=== PATIENT | male | born 1995 | race African-American/Black ===

== ENCOUNTER 2021-02-12 18:37 | Emergency (ER) | payer OTHER, SELFPAY ==
--- NOTE | ~2021-02-12 | XR_ITS ---
EXAMINATION: XR chest 2V DATE: 02/12/2021 19:21 INDICATION: Chronic left-sided chest pain. TECHNIQUE: Frontal and lateral views of the chest were obtained. COMPARISON: None. FINDINGS: The chest demonstrates clear lungs without pneumonia, pleural effusion, or pneumothorax. Th e heart size is normal. IMPRESSION: 1. No acute cardiopulmonary disease. Reviewed, dictated and finalized at location A. PLAY PROGRAMMER
--- NOTE | 2021-02-12 18:40 | ECG_ITS ---
Measurements Intervals [place] Rate: 77 P: 56 OR: 168 QRS: 39 QRSD: 84 T: 16 QT: 356 QTc: 403 Interpretive Statements SINUS RHYTHM WITH SINUS ARRHYTHMIA BORDERLINE T WAVE ABNORMALITY- INFERIOR LEADS BASELINE ARTIFACT- I, II BORDERLINE ECG Electronically Signed On 02-12-2021 20:37:42 SUPERVISOR [employer] by Himanshu Dumont D.O.
[2021-02-12 18:51] VITALS: BP 146/89; PULSE 81; RESP 14; TEMP 36.7; O2SAT 98
[2021-02-12 19:13] LABS: Basophils Percent Auto 0.5 % (0.2-1.2); Eosinophils Absolute Auto 0.1 K/mm3 (0-0.3); Hematocrit 46.7 % (42.0-52.0); Hemoglobin 15.7 g/dL (14.0-18.0); Immature Granulocyte Absolute 0.03 K/mm3 (0.00-0.031); Immature Granulocyte Percent A 0.4 % (0-0.5); Lymphocytes Absolute Auto 2.14 K/mm3 (0.9-3.2); Lymphocytes Percent Auto 29.2 % (18.3-44.2); Mean Corpuscular HGB Conc 33.6 g/dl (32-36); Mean Corpuscular Hemoglobin 29.6 pg (26-34); Mean Corpuscular Volume 87.9 fl (80-100); Mean Platelet Volume 12.1 fl (7.4-10.4); Monocytes Absolute Auto 0.5 K/mm3 (0.1-0.6); Monocytes Percent Auto 7.1 % (2.6-8.5); Neutrophils Absolute Auto 4.5 K/mm3 (1.3-6.7); Neutrophils Percent Auto 61.8 % (45.5-73.1); Platelet Count Result 231 k/mm3 (150-375); Red Blood Count 5.31 M/mm3 (4.6-6.20); Red Cell Distribution Width 12.3 % (11.5-14.5); White Blood Count 7.3 K/mm3 (4.5-10.0)
[2021-02-12 19:23] LABS: Alanine Aminotransferase 37 U/L (4-50); Albumin Level 4.9 g/dL (3.5-5.1); Alkaline Phosphatase 72 U/L (38-126); Anion Gap 9 mmol/L (8-16); Aspartate Amino Transferase 31 U/L (17-59); Bilirubin,Total 0.4 mg/dL (0.2-1.3); Blood Urea Nitrogen 10 mg/dL (9-20); Calcium 9.2 mg/dL (8.4-10.2); Carbon Dioxide 26 mmol/L (22-30); Chloride 99 mmol/L (98-107); Estimated CRCL calculation 115 ml/min; Estimated Glomerular Filt Rate > 60; Glucose 102 mg/dL (65-110); Lipase 73 U/L (23-300); Prothrombin Time 12.8 Seconds (11.1-14.7); Sodium 134 mmol/L (137-145)
[2021-02-12 19:24] LABS: Partial Thromboplastin Time 27.3 SECONDS (22.3-36.8)
[2021-02-12 19:34] LABS: Troponin I < 0.012 ng/mL (0.000-0.034)
--- NOTE | 2021-02-12 22:39 | ED.CHESTPAIN ---
HPI - Chest Pain General Chief Complaint: Chest Pain Stated Complaint: Chest pain x2 years, worse over last week Time Seen by Provider: 02/12/21 21:10 Source: patient Mode of arrival: ambulatory Limitations: no limitations History of Present Illness HPI narrative: Patient presents for evaluation of left-sided chest pain for the last 2 years. Symptoms were initially occurring once per week but now occur up to 10-20 times per day. Symptoms last just a second and he describes the pain is sharp, without numerical rating. He denies any shortness of breath, or cough. He was initially seen by her primary care provider was referred to cardiology. He states he had an echocardiogram performed and an EKG, chest x-ray and was told that these tests were all essentially unremarkable. He was told that he would be seen once per year by cardiology. He contacted his primary care provider due to increased frequency with which she was having symptoms and was told that he cannot be seen until of February. He states that he was advised to come to the ER for further evaluation. No family hx of heart disease. States that his stress levels are manageable. He does not smoke. He drinks socially but does not use illicit drugs. He is currently chest pain free. Related Data Allergies Allergy/AdvReac Type Severity Reaction Status Date / Time No Known Allergies Allergy Verified 02/12/21 18:52 Review of Systems Review of Systems: CONSTITUTIONAL: Denies fever, chills, or sweats. EYES: Denies visual changes, redness, or discharge. ENT: Denies rhinorrhea, congestion, sore throat, or otalgia. CARDIOVASCULAR:Reports intermittent left sided chest pain. Denies palpitations, or edema. RESPIRATORY: Denies cough or dyspnea. GASTROINTESTINAL: Denies abdominal pain, nausea, vomiting, or diarrhea. GENITOURINARY: Denies dysuria or hematuria. SKIN: Denies rash or itching. MUSCULOSKELETAL: Denies back pain, joint pain, or myalgia. NEUROLOGIC: Denies headache, numbness, dizziness, or weakness. PSYCHIATRIC: Denies anxiety or depression. [facility] Past Medical History Medical History (Updated 02/12/21 @ 23:44 by Ashwin Sommers, GEMA, ) No pertinent past medical history Surgical History Surgical History No pertinent past surgical history Family History Family History Mother No pertinent past medical history Father No pertinent past medical history Social History Social History Smoking status: Never smoker Alcohol intake: current Alcohol use details: Social Substance use: never Living arrangements: with roommate(s) Occupation/Education: student Gender identity (if verbalized by the patient): Male Spiritual care concerns: No Exam Narrative: GENERAL: Well-appearing, well-nourished, and in no acute distress. HEAD: Normocephalic, atraumatic. EYES: PERRLA and EOMI. ENT: Nares clear, no rhinorrhea or epistaxis. Mucous membranes moist. Oropharynx without tonsillar hypertrophy exudate or other lesions. Bilateral TMs pearly ellison nonbulging NECK: Supple. No adenopathy or masses. No carotid bruits or JVD CHEST: Clear to auscultation. No respiratory distress. No wheezes rales or rhonchi HEART: Regular rate and rhythm. No murmur heard. Normal peripheral pulses. ABDOMEN: Soft, nontender, nondistended, normal active bowel sounds. EXTREMITIES: Normal range of motion. No edema. SKIN: Warm, dry, no rash. NEURO: No focal deficits. Alert and oriented x3. PSYCH: Normal mood and affect. Course Course Emergency Course: This is a 25-year-old male who presented with 2-year history of chest pain which has been increasing in frequency. Troponin x2 -. D-dimer negative. Chest x-ray negative. EKG with no acute ischemic changes. Advised he should follow-up outpatient with
[2021-02-12 22:45] VITALS: BP 127/83; PULSE 56; RESP 16; O2SAT 100
[2021-02-12 22:50] LABS: Troponin I < 0.012 ng/mL (0.000-0.034)
[2021-02-12 23:35] LABS: D Dimer 0.27 ug/mL (<0.48)
[2021-02-12 23:57] VITALS: BP 122/83; PULSE 60; RESP 15; O2SAT 100
[2021-02-12 23:58] LABS: Troponin I < 0.012 ng/mL (0.000-0.034)
== END 2021-02-13 00:01 | disposition home or self-care (01) ==
PROVIDERS: Emergency Medicine; Emergency Provider Nurse Practitioner
DX: R07.9 Chest pain, unspecified (principal); R94.31 Abnormal electrocardiogram [ECG] [EKG]
CPT/HCPCS: 36415; 71046; 80053; 83690; 84484; 85025; 85380; 85610; 85730; 93005; 99284

== ENCOUNTER 2021-10-19 10:05 | Emergency (ER) | payer OTHER, SELFPAY ==
--- NOTE | ~2021-10-19 | US_ITS ---
EXAMINATION: US scrotum doppler DATE: 10/19/2021 10:57 INDICATION: Testicular pain. TECHNIQUE: Grayscale and Doppler ultrasound images of the testes were obtained. COMPARISON: None. FINDINGS: The right testis measures 4.5 x 2.3 x 3.0 cm. The left testis measures 5.0 x 2.6 x 3.2 cm. There is normal vascular flow to both testes. The right epididymis is normal with normal vascular rian w. The left epididymis contains a 4 mm cyst. There is no varicocele or hydrocele. IMPRESSION: 1. No etiology for the patient's symptoms. Reviewed, dictated and finalized at location A.
[2021-10-19 10:08] VITALS: BP 175/98; PULSE 85; RESP 16; TEMP 36.6; O2SAT 99
--- NOTE | 2021-10-19 10:26 | ED.MALEGU ---
HPI - Male Genitourinary General Chief complaint: Urogenital-Male Stated complaint: testicle pain Time Seen by Provider: 10/19/21 10:06 Source: RN notes reviewed History of Present Illness HPI Narrative: Patient presents emergency room from home for testicular pain. Patient states has been having left testicular pain for the past 8 months. States he has been waiting to get into a urologist but is unable to get an states he was seen by his PCP earlier this week at that time he had had testing for HIV chlamydia and gonorrhea that was all negative and was scheduled for an ultrasound was unable get the ultrasound states the pain is described as aching in nature and does not radiate he denies any fevers or chills abdominal pain nausea vomiting dysuria or any other symptoms Related Data Home Medications Medication Instructions Recorded Confirmed methocarbamol 500 mg tablet 500 mg 10/19/21 Allergies Allergy/AdvReac Type Severity Reaction Status Date / Time No Known Allergies Allergy Verified 10/19/21 10:12 Review of Systems Review of Systems: Gen.: Denies fevers or chills Respiratory: Denies shortness of breath CV: Denies chest pain GI: Denies abdominal pain nausea, emesis d see HPI Musculoskeletal: Denies back pain or muscle pain Neuro: Denies numbness, tingling, weakness or focal weakness Skin: Denies rash Except as documented, all other systems reviewed and negative [facility] Past Medical History Medical History No pertinent past medical history Surgical History Surgical History No pertinent past surgical history Family History Family History Mother No pertinent past medical history Father No pertinent past medical history Social History Social History Smoking status: Never smoker Alcohol intake: current Alcohol use details: Social Substance use: never Gender identity (if verbalized by the patient): Male Spiritual care concerns: No Exam Narrative: APPEARANCE: No acute distress, nontoxic, resting in bed EYES: EOMI HEENT: Normocephalic, atraumatic, OMM RESPIRATORY: No respiratory distress Clear to auscultation bilaterally with no rhonchi wheezing or rales. CARDIOVASCULAR: Regular rate and rhythm without murmurs rubs or gallops. ABDOMINAL: Soft, nontender, nondistended, no rebound or guarding : Normal external exam no skin lesions seen no scrotal swelling or erythema, no tenderness of the right testicle mild tenderness of the left posterior testicle with no swelling no hernias palpated MUSCULOSKELETAl: Moves all extremities. No clubbing, cyanosis or edema. NEURO: Awake and alert. Following commands, speech normal, no focal deficits SKIN:: Warm, dry. No rashes lesions or abrasions PSYCHIATRIC: Normal affect/mood, Course Course Emergency Course: I did see copy the patient's lab work he did have a UA as well as chlamydia gonorrhea HIV all the negative at that time Discussed with patient results of workup and diagnosis. Discussed need for follow-up with primary care, proper use of medication, and reasons to return to the emergency department. Patient understands and agrees to current treatment plan Vital Signs Vital signs: Vital Signs Temperature 97.8 F 10/19/21 10:08 Pulse Rate 85 10/19/21 10:08 Respiratory Rate 16 10/19/21 10:08 Blood Pressure 175/98 H 10/19/21 10:08 Pulse Oximetry 99 10/19/21 10:08 Temperature 97.8 F 10/19/21 10:08 Pulse Rate 85 10/19/21 10:08 Respiratory Rate 16 10/19/21 10:08 Blood Pressure 175/98 H 10/19/21 10:08 Pulse Oximetry 99 10/19/21 10:08 MDM - Male Genitourinary Imaging Data Radiologist's impression: ITS Impressions Scrotum Ultrasound 10/19/21 11:03 IMPRESSION: 1. No e
[2021-10-19 11:16] VITALS: BP 132/80; PULSE 73; RESP 18; O2SAT 100
== END 2021-10-19 11:23 | disposition home or self-care (01) ==
PROVIDERS: Emergency Provider Emergency Medicine
DX: N50.812 Left testicular pain (principal)
CPT/HCPCS: 76870; 93976; 99284

== ENCOUNTER 2022-01-11 12:12 | Outpatient (CLI) | payer OTHER, SELFPAY ==
[2022-01-11 13:33] LABS: Erythrocyte Sedimentation Rate 5 mm/hr (0-20)
[2022-01-11 14:16] LABS: Folic Acid 7.8 ng/mL (2.76->20)
== END 2022-01-11 12:13 | disposition home or self-care (01) ==
PROVIDERS: PCP Physician Assistant; Visit Provider Physician Assistant
DX: R07.9 Chest pain, unspecified (principal); R53.83 Other fatigue
CPT/HCPCS: 36415; 82607; 82746; 84443; 85652

== ENCOUNTER 2022-04-11 11:09 | Emergency (ER) | payer OTHER, SELFPAY ==
[2022-04-11 11:18] VITALS: BP 140/77; PULSE 82; RESP 16; TEMP 36.5; O2SAT 100
--- NOTE | 2022-04-11 11:40 | ED.URI ---
HPI - URI/Sore Throat General Chief Complaint: Upper Respiratory Infection Stated Complaint: Fever/ Sore Throat Time Seen by Provider: 04/11/22 11:37 Source: patient and RN notes reviewed Mode of arrival: ambulatory Limitations: no limitations History of Present Illness HPI Narrative: 26-year-old male presents concern for sore throat, fever headache. He reports symptoms started 2 days ago. He denies nasal congestion, rhinorrhea, vomiting, stomachache, cough. MD elicited complaint: sore throat Related Data Home Medications Medication Instructions Recorded Confirmed pentoxifylline 400 mg 400 mg PO DIRECTED 04/11/22 04/11/22 tablet,extended release Allergies Allergy/AdvReac Type Severity Reaction Status Date / Time No Known Allergies Allergy Verified 04/11/22 11:12 Review of Systems Review of Systems: CONSTITUTIONAL: Reports malaise, fever. EYES: Denies visual changes, redness, or discharge. ENT: Denies rhinorrhea, congestion, sinus pain, otalgia. Reports sore throat. CARDIOVASCULAR: Denies chest pain, palpitations, or edema. RESPIRATORY: Denies cough. Denies dyspnea. GASTROINTESTINAL: Denies abdominal pain, nausea, vomiting, diarrhea SKIN: Denies rash or itching. MUSCULOSKELETAL: Denies myalgia. NEUROLOGIC: Reports headache. All systems reviewed & are unremarkable except as noted in HPI and below PMFSH Past Medical History Medical History No pertinent past medical history Surgical History Surgical History No pertinent past surgical history Family History Family History Mother No pertinent past medical history Father No pertinent past medical history Social History Social History Smoking status: Never smoker Second hand tobacco smoke exposure: No Alcohol intake: current Alcohol use details: Social Substance use: never Living arrangements: with roommate(s) Occupation/Education: student Gender identity (if verbalized by the patient): Male Spiritual care concerns: No Comments At time of signature, agree with nursing past medical, surgical, social and family history. There is no relevant family history pertinent to the presenting complaint Exam Narrative: GENERAL: Well-appearing, well-nourished, and in no acute distress. HEAD: Normocephalic EYES: PERRLA, conjunctivae clear ENT: Nares clear. Mucous membranes moist. TM pearly ellison with dull light reflex bilaterally; no tragal tenderness. Oropharynx erythematous without lesions. Tonsils enlarged and without exudate, no drooling, no hoarseness, no trismus, uvula midline. NECK: Supple. No lymphadenopathy CHEST: Clear to auscultation, breath sounds equal. No wheezing, rhonchi, rales, or stridor. No respiratory distress, speaks in full sentences. HEART: Regular rate and rhythm. No murmur heard. SKIN: Warm, dry, no rash. NEURO: Alert and oriented x3. PSYCH: Normal mood and affect Course Course Emergency Course: Patient is aware of diagnosis, understands and agrees to treatment plan. Anticipatory guidance given. Patient agrees to follow-up as directed and is aware of reasons to seek care at the emergency department. Portions of this record may have been created with voice recognition software Level of Care: Express Care Visit Vital Signs Vital signs: Vital Signs Temperature 97.7 F 04/11/22 11:18 Pulse Rate 82 04/11/22 11:18 Respiratory Rate 16 04/11/22 11:18 Blood Pressure 140/77 04/11/22 11:18 Pulse Oximetry 100 04/11/22 11:18 Oxygen Delivery Room Air 04/11/22 11:18 Temperature 97.7 F 04/11/22 11:18 Pulse Rate 82 04/11/22 11:18 Respiratory Rate 16 04/11/22 11:18 Blood Pressure 140/77 04/11/22 11:18 Pulse Oximetry 100 04/11/22 11:18 Oxygen Delivery Room
== END 2022-04-11 11:51 | disposition home or self-care (01) ==
PROVIDERS: Emergency Provider Nurse Practitioner; PCP Physician Assistant
DX: J02.0 Streptococcal pharyngitis (principal)
CPT/HCPCS: 87880; 99213; G0463

== ENCOUNTER 2023-04-13 12:47 | Emergency (ER) | payer OTHER, SELFPAY ==
--- NOTE | ~2023-04-13 | XR_ITS ---
EXAMINATION: XR chest 2V 04/13/2023 13:35 INDICATION: Left-sided chest pain PROCEDURE: 2 view chest COMPARISON: 02/12/2021 FINDINGS: The lungs are clear. The cardiomediastinal silhouette is within normal limits. There are no pleural effusions. There is no pneumothorax suspected. IMPRESSION: 1: NO ACUTE CARDIOPULMONARY DISEASE. Reviewed, dictated and finalized at location A. S ORDER AND STOCK CLERK
--- NOTE | 2023-04-13 13:00 | ECG_ITS ---
Measurements Intervals [place] Rate: 72 P: 54 MN: 176 QRS: 39 QRSD: 87 T: -20 QT: 363 QTc: 399 Interpretive Statements SINUS RHYTHM WITH SINUS ARRHYTHMIA NONSPECIFIC T-WAVE ABNORMALITY- ANTEROLAT/INF LEADS BORDERLINE ECG COMPARED TO ECG 02/12/2021 18:43:27 NO SIGNIFICANT CHANGES Electronically Signed On 04-13-2023 19:16:22 ESTIMATOR AND [employer]RAFTER SUPERVISOR by Himanshu Dumont D.O.
[2023-04-13 13:28] LABS: Basophils Percent Auto 0.7 % (0.2-1.2); Eosinophils Absolute Auto 0.1 K/mm3 (0-0.3); Hematocrit 47.3 % (42.0-52.0); Hemoglobin 15.2 g/dL (14.0-18.0); Immature Granulocyte Absolute 0.02 K/mm3 (0.00-0.031); Immature Granulocyte Percent A 0.3 % (0-0.5); Lymphocytes Absolute Auto 2.08 K/mm3 (0.9-3.2); Lymphocytes Percent Auto 34.4 % (18.3-44.2); Mean Corpuscular HGB Conc 32.1 g/dl (32-36); Mean Corpuscular Hemoglobin 28.5 pg (26-34); Mean Corpuscular Volume 88.7 fl (80-100); Mean Platelet Volume 11.8 fl (7.4-10.4); Monocytes Absolute Auto 0.5 K/mm3 (0.1-0.6); Monocytes Percent Auto 7.6 % (2.6-8.5); Neutrophils Absolute Auto 3.3 K/mm3 (1.3-6.7); Platelet Count Result 228 k/mm3 (150-375); Red Blood Count 5.33 M/mm3 (4.6-6.20); Red Cell Distribution Width 12.3 % (11.5-14.5); White Blood Count 6.1 K/mm3 (4.5-10.0)
[2023-04-13 13:43] LABS: Alanine Aminotransferase 48 U/L (6-50); Albumin Level 4.5 g/dL (3.5-5.1); Alkaline Phosphatase 56 U/L (38-126); Anion Gap 10 mmol/L (8-16); Aspartate Amino Transferase 34 U/L (17-59); Bilirubin,Total 0.8 mg/dL (0.2-1.3); Blood Urea Nitrogen 11 mg/dL (9-20); Carbon Dioxide 27 mmol/L (22-30); Chloride 104 mmol/L (98-107); Estimated CRCL calculation 116 ml/min; Estimated Glomerular Filt Rate > 60; Glucose 126 mg/dL (65-110); Lipase 53 U/L (23-300); Potassium 3.8 mmol/L (3.4-5.0); Sodium 141 mmol/L (137-145)
[2023-04-13 13:48] LABS: Prothrombin Time 13.8 Seconds (11.1-14.7)
[2023-04-13 13:49] LABS: Partial Thromboplastin Time 28.2 SECONDS (22.3-36.8)
[2023-04-13 13:54] LABS: Troponin I < 0.012 ng/mL (0.000-0.034)
[2023-04-13 17:17] LABS: Troponin I < 0.012 ng/mL (0.000-0.034)
--- NOTE | 2023-04-13 18:00 | ED.GENADULT ---
[facility] - General Adult General Chief complaint: Chest Pain Stated complaint: chest pain Source: patient Mode of arrival: ambulatory Limitations: no limitations History of Present Illness HPI narrative: this is a 27-year-old male who presents to the ED with chief complaint of acute on chronic chest pain beginning today. Reports he has had some more left-sided chest pain for the past 4 years that comes and goes intermittently. describes the pain as a spasm and muscular pain. 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 He noticed the pain was worse today with so he wanted to get checked out. Denies fevers, chills, recent illness, cough, congestion, shortness of breath, palpitations, leg swelling, any history of blood clot or focalization. Related Data Home Medications Medication Instructions Recorded Confirmed pentoxifylline 400 mg 400 mg PO DIRECTED 04/11/22 05/12/22 tablet,extended release Allergies Allergy/AdvReac Type Severity Reaction Status Date / Time No Known Allergies Allergy Verified 04/13/23 12:50 Review of Systems Review of Systems: All systems as dictated in [facility] Past Medical History Medical History No pertinent past medical history Surgical History Surgical History No pertinent past surgical history Family History Family History Mother No pertinent past medical history Father No pertinent past medical history Social History Social History Smoking status: Never smoker Second hand tobacco smoke exposure: No Alcohol intake: current Alcohol use details: Social Substance use: never Lack of Transportation: No Lack of Food: Never True Current Housing: I Have Housing Concerned About Future Housing: No Difficulty Paying Gas/Electric Bills: No Difficulty Paying for Meds: No Currently Unemployed: No Education: Master's Degree or Higher Difficulty w/ Childcare or Family Care: No Living arrangements: with roommate(s) Occupation/Education: student Gender identity (if verbalized by the patient): Male Spiritual care concerns: No Exam Narrative: GENERAL: Well-appearing, well-nourished, and in no acute distress. HEAD: Normocephalic, atraumatic. EYES: PERRLA and EOMI. ENT: Nares clear, no rhinorrhea or epistaxis. Mucous membranes moist. Oropharynx without tonsillar hypertrophy exudate or other lesions. NECK: Supple. No adenopathy or masses. CHEST: No respiratory distress. Clear to auscultation. No wheezes rales or rhonchi HEART: Regular rate and rhythm. No murmur heard. Normal peripheral pulses. ABDOMEN: Soft, nontender, nondistended, normal active bowel sounds. MSK: Normal range of motion. No edema. SKIN: Warm, dry, no rash. NEURO: Alert and oriented x3. No focal deficits. PSYCH: Normal mood and affect. Medical Decision Making MDM Narrative Medical decision making narrative: this is a 27-year-old male who presents to the ED with chief complaint of acute on chronic left-sided chest pain. Vitals are normal. Exam is benign. ECG shows sinus rhythm with no acute ischemic findings. Heart score is 1. Perc rule negative. Lab work is unremarkable including serial troponins that are negative. Chest x-ray negative. Suspect musculoskeletal cause of the chest pain. He feels asymptomatic at the time of my evaluation. Pt will be discharged in stable condition. Return precautions given and supportive measures discussed. Pt is understanding and agreeable with plan for discharge and follow-up with PCP. Lab Data 04/13/23 13:09 04/13/23 13:09 Labs: Lab Results 04/13/23 04/13/23 Range/Units 13:09 16:49 WBC 6.1 (4.5-10.0) K/mm3 RBC 5.33 (4.6-6.20) M/mm3 Hgb
[2023-04-13 18:15] VITALS: BP 142/84; PULSE 84; RESP 16; O2SAT 98
== END 2023-04-13 18:16 | disposition home or self-care (01) ==
PROVIDERS: Emergency Medicine; Emergency Provider Physician Assistant; PCP Physician Assistant
DX: R07.89 Other chest pain (principal); R94.31 Abnormal electrocardiogram [ECG] [EKG]
CPT/HCPCS: 36415; 71046; 80053; 83690; 84484; 85025; 85610; 85730; 93005; 99284

== ENCOUNTER 2025-01-29 11:16 | Emergency (ER) | payer OTHER, SELFPAY ==
[2025-01-29 11:26] VITALS: BP 111/88; PULSE 65; RESP 16; TEMP 36.9; O2SAT 100
--- NOTE | 2025-01-29 12:01 | ED_ITS ---
HPI - Eye Problem General Chief complaint: Eye Problems Stated complaint: pain in ribs patient presents to the [facility] with complaints of left-sided rib pain that began over the last few days. Patient noted that he has not had any injuries or recent illness. Does report a history of costochondritis and wondering this is a similar episode. Attempted Tylenol and ibuprofen with minimal relief of symptoms. Pain with stretching and movement of the area. Patient does also report some swelling and gritty feeling in left eye and left lower eyelid. A denies any matting or drainage from the area, headache, dizziness, cold symptoms, or redness to the eye. No vision changes or wearing contacts or glasses. Related Data Allergies Allergy/AdvReac Type Severity Reaction Status Date / Time No Known Allergies Allergy Verified 01/29/25 11:27 Review of Systems Constitutional: Constitutional: Reports as per HPI, Denies chills, Denies fatigue, Denies fever(s) and Denies weakness Eyes: Eyes: Reports as per HPI, Denies change in vision and Denies photophobia Comments: irritation and swelling left lower eyelid. ENT: Reports as per HPI, Denies vertigo, Denies dizziness and Denies sore throat Cardiovascular: Cardiovascular: Reports as per HPI, Reports chest pain, Denies rapid heart rate, Denies radiating jaw, neck or arm pain and Denies slow heart rate Comments: Left-sided rib pain Respiratory: Respiratory: Reports as per HPI, Denies chest congestion, Denies cough, Denies dyspnea and Denies wheezing Gastrointestinal: Gastrointestinal: Reports no additional gastrointestinal complaints Genitourinary: Genitourinary: Reports no additional male genitourinary complaints Musculoskeletal: Musculoskeletal: Reports as per HPI, Denies back pain, Reports myalgias, Denies arthralgias, Denies joint swelling and Denies muscle cramps Integumentary/Breasts: Skin/Breast: Reports as per HPI, Denies erythema and Denies rash Neurologic: Reports as per HPI, Denies vertigo, Denies dizziness, Denies headache(s) and Denies weakness Psychiatric: Psychiatric: Reports no additional psychiatric complaints Endocrine: Endocrine: Reports no additional endocrine complaints Hematologic/Lymphatic: Hematologic/Lymphatic: Reports no additional hematologic/lymphatic complaints Allergic/Immunologic: Allergic/Immunologic: Reports no additional allergic/immunologic complaints PMFSH Past Medical History Medical History No pertinent past medical history Surgical History Surgical History No pertinent past surgical history Family History Family History Mother No pertinent past medical history Father No pertinent past medical history Social History Social History Smoking status: Never smoker Second hand tobacco smoke exposure: No Alcohol intake: current Alcohol use details: Social Substance use: never Lack of Transportation: No Lack of Food: Never True Current Housing: I Have Housing Concerned About Future Housing: No Difficulty Paying Gas/Electric Bills: No Difficulty Paying for Meds: No Currently Unemployed: No Education: Master's Degree or Higher Difficulty w/ Childcare or Family Care: No Living arrangements: with roommate(s) Occupation/Education: student Gender identity (if verbalized by the patient): Male Spiritual care concerns: No Exam Const: General: healthy appearing and no acute distress Nutritional Appearance: well nourished Orientation/consciousness: patient oriented x3 Limitations: no limitations HENMT: Ears: external ears normal Face/Nose/Sinus: Normal external nose present and Normal nares present Face and sinus: normal facial exam and sinuses nontender Mouth: Yes Normal oral and palatal mucosa present Throat: posterior oropharynx normal Eyes: Conjunctivae: conjunctivae normal Pupils: Equal, round and reactive pupils present EOM: EOMs intact bilaterally Direct Ophthalmoscopy: no photophobia Other: minimal swelling to left lower eyelid. No erythema, rash, or ecchymosis noted Neck: Neck: normal visual inspection and no lymphadenopathy Chest: Chest palpation & inspection: normal inspection of the chest, tenderness (left ) rib and No Pacemaker present Resp: Effort & Inspection: normal respiratory effort Auscultation: clear to auscultation bilaterally Cardio: Rate: regular rate Rhythm: regular rhythm Skin: General skin exam: normal color Rashes: no rashes Wounds: no wounds Neuro: General: patient oriented x3 and moves all extremities Speech: normal speech Gait exam (Neuro): Normal gait present Extrem: General: normal to inspection, no clubbing, cyanosis or edema and no pedal edema Psych: Mental Status: mental status grossly normal Affect: normal affect Attitude: cooperative Course Course Level of Care: Express Care Visit Vital Signs Vital signs: Vital Signs Temperature 98.4 F 01/29/25 11:26 Pulse Rate 65 01/29/25 11:26 Respiratory Rate 16 01/29/25 11:26 Blood Pressure 111/88 01/29/25 11:26 Pulse Oximetry 100 01/29/25 11:26 Oxygen Delivery Room Air 01/29/25 11:26 Temperature 98.4 F 01/29/25 11:26 Pulse Rate 65 01/29/25 11:26 Respiratory Rate 16 01/29/25 11:26 Blood Pressure 111/88 01/29/25 11:26 Pulse Oximetry 100 01/29/25 11:26 Oxygen Delivery Room Air 01/29/25 11:26 MDM - Eye Problem MDM Narrative Medical decision making narrative: The patient was evaluated by myself in the express care. History is obtained from patient who is an independent historian and physical exam was performed. Available medical records were reviewed at this time. Exam findings show no acute concerns or changes; patient is non-toxic appearing and is in no distress. Patient is appropriate for outpatient treatment and follow-up. I have evaluated and discussed social determinants of health with the patient that could potentially impact subsequent diagnosis and treatment plans. Differential diagnosis and treatment plan were discussed with the patient. Patient agrees with discussion and after shared medical decision making agrees with plan of care. All questions were answered to the patient's satisfaction. Differential Diagnosis Differential diagnosis: Likely conjunctivitis, subconjunctival hemorrhage, corneal ulcer, ruptured globe and other (Musculoskeletal pain, costochondritis) Medical Records Attestation: I reviewed the patient's medical records. Discharge Plan Discharge Clinical Impression: Acute allergic conjunctivitis of left eye, Strain of muscle and tendon of front wall of thorax, initial encounter Patient Disposition: Home Condition: Stable Instructions: Antibiotic Form, Muscle Strain (ED), Tendinitis (ED), Conjunctivitis (ED), Cold Compress or Soak (ED) Additional Instructions: This is likely muscular in nature recommended resting for 2 days then begin applying heat for 20 minutes then gentle range of motion or massaged then ice for 20 minute several times per day. may use the sling as needed to get extra support take ibuprofen or naproxen as directed consistently this will help with inflammation. May use the muscle relaxers as needed this can make you drowsy do not drive, drink alcohol or operate heavy machinery while taking this medication. Follow-up with primary care physician within the next week if symptoms not improved if you notice any significant numbness, tingling, weakness, or neck pain follow-up with emergency room for immediate evaluation. Patient Language: Greek Prescriptions: New methocarbamol 750 mg tablet 750 mg PO TID Qty: 30 0RF methylprednisolone [Medrol (Genaro)] 4 mg tablets,dose pack See Rx Instructions .ROUTE .COMPLEX Qty: 21 0RF Rx Instructions: for 6 days olopatadine [Pataday Once Daily Relief] 0.2 % drops 1 drp LEFT EYE DAILY 7 Days Qty: 5 0RF Follow-up/Referrals: Woo,Tian [Other] Time of Disposition: 12:04
== END 2025-01-29 12:07 | disposition home or self-care (01) ==
PROVIDERS: Emergency Provider Nurse Practitioner Family
DX: H10.12 Acute atopic conjunctivitis, left eye (principal); S29.011A Strain of muscle and tendon of front wall of thorax, initial encounter; X58.XXXA Exposure to other specified factors, initial encounter
CPT/HCPCS: 99213; G0463